=== PATIENT | male | born 1940 | race Caucasian/White ===

== ENCOUNTER 2016-07-11 11:24 | Day surgery (SDC) | payer MEDICARE, OTHER ==
[2016-07-11] MEDS ORDERED: LACTATED RINGERS 1,000 ML IV ONE ×2 (11:43→13:48)
[2016-07-11] MEDS ORDERED: MIDAZOLAM 2 MG/2 ML VIAL IVP ONE (13:10)
[2016-07-11] MEDS ORDERED: fentaNYL 250 MCG/5 ML VIAL IVP ONE (13:10)
== END 2016-07-11 11:25 | disposition home or self-care (01) ==
PROC: 0DB58ZX Excision of Esophagus, Via Natural or Artificial Opening Endoscopic, Diagnostic (ICD-10-PCS; principal; 2016-07-11 12:30)
PROC: 0DJD8ZZ Inspection of Lower Intestinal Tract, Via Natural or Artificial Opening Endoscopic (ICD-10-PCS; 2016-07-11 12:30)
DX: Z12.11 Encounter for screening for malignant neoplasm of colon (principal); Z86.010 Personal history of colon polyps; K22.70 Barrett's esophagus without dysplasia; K44.9 Diaphragmatic hernia without obstruction or gangrene; K31.7 Polyp of stomach and duodenum; K57.30 Diverticulosis of large intestine without perforation or abscess without bleeding; K21.9 Gastro-esophageal reflux disease without esophagitis; Z88.0 Allergy status to penicillin; F17.200 Nicotine dependence, unspecified, uncomplicated
CPT/HCPCS: 43239; G0105; J3010; J7120

== ENCOUNTER 2017-02-06 14:31 | Outpatient (CLI) | payer MEDICARE, OTHER ==
--- NOTE | 2017-02-07 15:23 | DEXA Report ---
DEXA SCAN: 02/06/2017 CLINICAL INDICATION: Chronic PPI use. TECHNIQUE: Dual energy x-ray absorptiometry (DXA) was performed on a [employer] system. Regions measured are the AP spine, femoral neck, and, if needed, forearm. COMPARISON: None. In accordance with the International Society for Clinical Densitometry (ISCD) guidelines, data from previous exams may be reanalyzed using current recommendations and techniques. This is done to allow a more accurate basis for comparison with the current study. FINDINGS LUMBAR SPINE DATA: REGION BMD (g/cm/cm) T-SCORE Z-SCORE L1 1.158 0.0 0.7 L2 1.183 -0.5 0.3 L3 1.417 1.5 2.2 L4 1.281 0.3 1.1 TOTAL 1.263 0.4 1.1 NOTE: All evaluable vertebrae are used for classification. HIP DATA: REGION BMD (g/cm/cm) T-SCORE Z-SCORE Neck 0.878 -1.5 0.1 TOTAL 0.952 -1.0 0.0 NOTE: The femoral neck or total proximal femur, whichever is lowest, is used for classification. IMPRESSION THE WHO CLASSIFICATION BASED ON THE INTERNATIONAL REFERENCE STANDARD: OSTEOPENIA (REFERENCE LEFT FEMORAL NECK). FRACTURE RISK: INCREASED. RECOMMENDATION: Patients with diagnosis of osteoporosis or osteopenia should have regular bone mineral density assessment. For those eligible for Medicare, routine testing is allowed once every 2 years. Testing frequency can be increased for patients who have rapidly progressing disease or for those who are receiving medical therapy to restore bone mass. COMMENT: World Health Organization (WHO) definitions for osteoporosis and osteopenia: NORMAL BMD: T-score at -1.0 or higher, fracture risk is low. OSTEOPENIA BMD: T-score between -1.0 and -2.5, fracture risk is increased. OSTEOPOROSIS BMD: T-score at -2.5 or lower, fracture risk high. National Osteoporosis Foundation recommends: 1. Obtain adequate dietary calcium (at least 1200 mg per day) and vitamin D (400 -800 international units per day). 2. Participate, as appropriate, in regular weightbearing and muscle- strengthening exercise. 3. Avoid tobacco use and reduce alcohol and caffeine intake. 4. For more detailed information see the website at www.NOF.org. MTDD
== END 2017-02-06 14:32 | disposition home or self-care (01) ==
LOC: DI 14:31
PROVIDERS: ATTEND Physician Assistant
DX: M85.88 Other specified disorders of bone density and structure, other site (principal); Z79.899 Other long term (current) drug therapy
CPT/HCPCS: 77080

== ENCOUNTER 2017-05-27 18:30 | Outpatient (CLI) | payer MEDICARE, OTHER ==
--- NOTE | 2017-05-28 14:26 | XRAY Report ---
TWO VIEW CHEST: 05/27/2017 CLINICAL INDICATION: Fever, cough. COMPARISON: 03/19/2014. FINDINGS: Frontal and lateral views of the chest demonstrate a normal cardiac silhouette. The lungs remain hyperinflated, compatible with COPD. A small hiatal hernia is incidentally noted. No focal infiltrate, effusion, or pneumothorax is present. IMPRESSION: HYPERINFLATION, COMPATIBLE WITH COPD. NO EVIDENCE OF ACUTE CARDIOPULMONARY DISEASE. TD: 05/28/2017 14:25
== END 2017-05-27 18:31 | disposition home or self-care (01) ==
LOC: DI 18:30
PROVIDERS: ATTEND Family Medicine
DX: R05 Cough (principal); R50.9 Fever, unspecified
CPT/HCPCS: 71046

== ENCOUNTER 2017-06-28 09:16 | Outpatient (CLI) | payer MEDICARE, OTHER ==
[~2017-06-28 09:16] MED LIST: ALBUTEROL NEB 2.5 MG/3 ML INH ONE
== END 2017-06-28 09:17 | disposition home or self-care (01) ==
LOC: RT 09:16
PROVIDERS: ATTEND Physician Assistant
DX: R05 Cough (principal)
CPT/HCPCS: 94010

== ENCOUNTER 2018-04-11 10:10 | Emergency (ER) | payer MEDICARE, OTHER ==
[2018-04-11 10:18] VITALS: BP 120/57
[2018-04-11] MEDS ORDERED: IBUPROFEN 800 MG TABLET PO STA (10:26)
[2018-04-11] MEDS ORDERED: ACETAMINOPHEN 325 MG TABLET PO STA (10:43)
--- NOTE | 2018-04-11 11:10 | XRAY Report ---
Reason: dyspnea Procedure Date: 04/11/2018 Accession Number: [id number] / [id number] Procedure: XR - Chest 2 View X-Ray CPT Code: 54555 FULL RESULT: EXAM: CHEST RADIOGRAPHY EXAM DATE: 04/11/2018 10:43 AM. CLINICAL HISTORY: Dyspnea. Cough and fever. Pneumonia 3 months ago. COMPARISON: CHEST 2 VIEW 05/27/2017 6:34 PM. TECHNIQUE: 2 views. FINDINGS: Lungs/Pleura: No focal opacities evident. No pleural effusion. No pneumothorax. Normal volumes. Mediastinum: Heart and mediastinal contours are unremarkable. Minimal aortic arch calcification. Other: None. IMPRESSION: Normal 2-view chest radiography. RADIA
--- NOTE | 2018-04-11 11:20 | ED Physician Documentation ---
History of Present Illness - Stated complaint Stated Complaint: FEVER - Chief complaint Chief Complaint: Fever - History obtained from History obtained from: Patient, Family (Spouse) - History of Present Illness Timing: How many days ago (4) - Additonal information Additional information: The patient is a 78-year-old male who presents with nonproductive cough of 4 day s duration during the night last night he had a fever to 101.6, with "shakes." He reports mild shortness of breath, but denies chest pain. He has history of pneumonia 2-1/2 months ago, and is concerned about the recurrent pneumonia. He was treated with Zithromax at that time. He has remote history of cigarette smoking, more than 40 years ago. Review of Systems Constitutional: reports: Fever, Chills Nose: denies: Congestion Throat: denies: Sore throat Cardiac: denies: Chest pain / pressure Respiratory: reports: Dyspnea (mild), Cough GI: denies: Abdominal Pain, Nausea, Vomiting : denies: Dysuria Skin: denies: Rash Musculoskeletal: denies: Back pain, Extremity swelling Neurologic: denies: Focal weakness, Numbness, Altered mental status, Headache PD PAST MEDICAL HISTORY - Past Medical History Past Medical History: Yes Cardiovascular: None Respiratory: Pneumonia Neuro: None Endocrine/Autoimmune: None GI: Other : None HEENT: None Psych: None Musculoskeletal: None Derm: None Other Past Medical History: barrets esophagus - Past Surgical History General: Colonoscopy, EGD HEENT: Tonsil/Adenoidectomy - Present Medications Home Medications: Ambulatory Orders Medication Instructions Recorded Confirmed Omeprazole [PriLOSEC] 40 mg PO DAILY 04/20/13 04/11/18 Ranitidine HCl [Zantac] 300 mg PO DAILY 07/10/16 04/11/18 Azithromycin [Zithromax] 0 mg PO DAILY #6 tablet 04/11/18 Benzonatate [Tessalon Perle] 100 - 200 mg PO TID PRN #20 capsule 04/11/18 - Allergies Allergies/Adverse Reactions: Allergies Allergy/AdvReac Type Severity Reaction Status Date / Time Penicillins Allergy Unknown Unknown Verified 04/11/18 10:18 - Social History Does the pt smoke?: No Smoking Status: Former smoker (Quit more than 40 years ago.) Does the pt drink ETOH?: No Does the pt have substance abuse?: No - Immunizations Immunizations are current?: Yes - POLST Patient has POLST: No PD ED PE NORMAL - Vitals Vital signs reviewed: Yes (normal) - General General: Alert and oriented X 3, Well developed/nourished - HEENT HEENT: Atraumatic, Pharynx benign - Neck Neck: No adenopathy, No JVD - Cardiac Cardiac: RRR, No murmur - Respiratory Respiratory: No respiratory distress, Clear bilaterally - Abdomen Abdomen: Soft, Non tender - Back Back: No CVA TTP - Derm Derm: No rash - Extremities Extremities: No edema, No calf tenderness / cord - Neuro Neuro: Alert and oriented X 3, No motor deficit, No sensory deficit Results - Vitals Vitals: Oxygen O2 Source Room air - Rads (name of study) CXR Radiology: Prelim report reviewed, EMP read contemporaneously, See rad report ( Normal 2 view chest radiography.) PD MEDICAL DECISION MAKING - ED course Complexity details: reviewed results, re-evaluated patient, considered differential, d/w patient, d/w family ED course: The patient's presentation is most consistent with acute bronchitis, with associated fever and shaking chills. His chest x-ray reveals no evidence of lobar pneumonia. He does not appear septic, and his respiratory rate and pulse oximetry are adequate. Given his presentation with shaking chills, I believe antibiotic therapy is warranted. He is being discharged with prescription for Zithromax and for Tessalon. I discussed with him and his the expected course of illness, antibiotic treatment and outpatient follow-up, as well as potentially worrisome signs or symptoms that should prompt reevaluation in the emergency department. Departure - Departure Disposition: 01 Home, Self Care Clinical Impression: Acute bronchitis Qualifiers: Bronchitis organism: unspecified organism Qualified Code(s): J20.9 - Acute bronchitis, unspecified Condition: Stable Instructions: ED Bronchitis Asthmatic Follow-Up: Jurgen Pendleton MD [Physician No Access] - Prescriptions: Azithromycin [Zithromax] 0 mg PO DAILY #6 tablet Benzonatate [Tessalon Perle] 100 - 200 mg PO TID PRN #20 capsule PRN Reason: Cough Comments: Continue using Tylenol as needed for fever. Take Zithromax daily as prescribed. You can use Tessalon as prescribed if needed for cough. You can use your albuterol inhaler if needed for wheezing or shortness of breath. Follow-up with your primary physician within 1 week. Call to schedule an appointment. Return to the emergency department if you develop increasing difficulty breathing, recurrent fever with shaking chills, or otherwise worsening symptoms. Discharge Date/Time: 04/11/18 11:49
== END 2018-04-11 11:49 | disposition home or self-care (01) ==
LOC: ED 10:10
DX: J02.9 Acute pharyngitis, unspecified (principal); Z87.891 Personal history of nicotine dependence
CPT/HCPCS: 71046; 99283; A9270

== ENCOUNTER 2018-05-09 16:05 | Outpatient (CLI) | payer MEDICARE, OTHER ==
--- NOTE | 2018-05-10 15:09 | XRAY Report ---
Reason: PAINFUL LEFT FOOT Procedure Date: 05/09/2018 Accession Number: [id number] / [id number] Procedure: XR - Foot 3 View LT CPT Code: FULL RESULT: EXAM: LEFT FOOT RADIOGRAPHY EXAM DATE: 05/09/2018 04:10 PM. CLINICAL HISTORY: Painful left foot. COMPARISON: None. TECHNIQUE: Three [id number] views. FINDINGS: Bones: Diffusely demineralized. No fractures or bone lesions. Joints: No subluxation or dislocation. There is minimal joint space narrowing and marginal osteophyte formation at the first metatarsophalangeal joint. There are minimal degenerative joint changes in the midfoot. Soft Tissues: Normal. No soft tissue swelling. IMPRESSION: 1. No acute osseous abnormality of the foot. 2. 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 RADIA
== END 2018-05-09 16:06 | disposition home or self-care (01) ==
LOC: DI 16:05
PROVIDERS: ATTEND Podiatrist
DX: M19.072 Primary osteoarthritis, left ankle and foot (principal)

== ENCOUNTER 2019-05-22 13:47 | Outpatient (CLI) | payer MEDICARE, OTHER ==
--- NOTE | 2019-05-25 13:46 | DEXA Report ---
Reason: BONE DISORDER Procedure Date: 05/22/2019 Accession Number: [id number] / [id number] Procedure: DEX - Dexa Spine and/or Hip CPT Code: Final Report FULL RESULT: EXAM: Dexa Spine and/or Hip DATE: 05/22/2019 2:52 PM CLINICAL HISTORY: BONE DISORDER TECHNIQUE: Dual energy x-ray absorptiometry (DXA) was performed on a [employer] System. Regions measured are the AP Spine, femoral neck, and if needed forearm. COMPARISON: 02/06/2017. In accordance with the International Society for Clinical Densitometry (ISCD) guidelines, data from previous exams may be reanalyzed using current recommendations and techniques. This is done to allow a more accurate basis for comparison with the current study. FINDINGS: The data for the lumbar spine is as follows: BMD (g/cm/cm) T-SCORE Z-SCORE REGION L1 1.145 -0.1 0.7 L2 1.240 0.0 0.8 L3 1.451 1.8 2.6 L4 1.404 1.4 2.2 TOTAL 1.312 0.8 1.6 NOTE: All evaluable vertebrae are used for classification The data for the hip is as follows: BMD (g/cm/cm) T-SCORE Z-SCORE REGION Neck 0.861 -1.6 0.0 TOTAL 0.897 -1.4 -0.2 NOTE: The femoral neck or total proximal femur, whichever is lowest, is used for classification. DXA RESULTS SUMMARY: Spine SCAN DATE AGE BMD CHANGE VS CHANGE VS PREVIOUS PREVIOUS % [birth year][age][birth year]2019 [age] 1.312 0.049* 3.9* 02[birth year]06/2017 [age] 1.263 * Denotes significant change at the 95% confidence level. Denotes dissimilar scan types or analysis methods. DXA RESULTS SUMMARY: Hip SCAN DATE AGE BMD CHANGE VS CHANGE VS PREVIOUS PREVIOUS % [birth year]2019 79.3 0.897 -0.055* -5.8* 02[birth year]06/2017 77.0 0.952 * Denotes significant change at the 95% confidence level. Denotes dissimilar scan types or analysis methods. IMPRESSION: THE WHO CLASSIFICATION BASED ON THE INTERNATIONAL REFERENCE STANDARD IS OSTEOPENIA. THE FRACTURE RISK IS INCREASED. Interval decrease in bone density is statistically significant. RECOMMENDATION: Patients with diagnosis of osteoporosis or osteopenia should have regular bone mineral density assessment. For those eligible for Medicare, routine testing is allowed once every 2 years. Testing frequency can be increased for patients who have rapidly progressing disease or for those who are receiving medical therapy to restore bone mass. COMMENT: World Health Organization (WHO) definitions for osteoporosis and osteopenia: NORMAL BMD: T-score at -1.0 or higher, fracture risk is low OSTEOPENIA BMD: T-score between -1.0 and -2.5, fracture risk is increased. OSTEOPOROSIS BMD: T-score at -2.5 or lower, fracture risk is high. National Osteoporosis Foundation recommends: 1. Obtain adequate dietary calcium (at least 1200 mg per day) and vitamin D (400-800 international units per day). 2. Participate, as appropriate, in regular weightbearing and muscle-strengthening exercise. 3. Avoid tobacco use and reduce alcohol and caffeine intake. 4. For more detailed information see the website at www.NOF.org.
== END 2019-05-22 13:48 | disposition home or self-care (01) ==
LOC: DI 13:47
PROVIDERS: ATTEND Internal Medicine
DX: M85.88 Other specified disorders of bone density and structure, other site (principal)
CPT/HCPCS: 77080

== ENCOUNTER 2021-05-31 14:22 | Outpatient (CLI) | payer MEDICARE, OTHER ==
--- NOTE | 2021-05-31 17:06 | DEXA Report ---
PROCEDURE: Dexa Spine and/or Hip INDICATIONS: OSTEOPENIA/BONE DISORDERS TECHNIQUE: Dual energy x-ray absorptiometry (DXA) was performed on a [employer] System. Regions measur ed are the AP Spine, femoral neck, and if needed forearm. COMPARISON: 05/22/2019. FINDINGS: Lumbar Spine: Bone Mineral Density 1.273 g/cm/cm,T score 0.4. There is interval 3% decrease in total lumbar spine bone mineral density. Left Hip: Bone Mineral Density 0.896 g/cm/cm,T score -1.4. There is interval 0.1% decrease in total left hip b one mineral density. Left Femoral Neck: Bone Mineral Density 0.77 g/cm/cm, T score -2.2. (T score greater or equal to -1.0: NORMAL) (T score from -1.1 to -2.4: OSTEOPENIA) (T score less than or equal to -2.5 to: OSTEOPOROSIS) Impression: Osteopenia. Patients with diagnosis of osteoporosis or osteopenia should have regular bone mineral density assess ment. For those eligible for Medicare, routine testing is allowed once every 2 years. Testing frequ ency can be increased for patients who have rapidly progressing disease or for those who are receivin g medical therapy to restore bone mass. Reviewed by: Maxwell Brown MD on 05/31/2021 5:04 PM PST Approved by: Maxwell Brown MD on 05/31/2021 5:04 PM PST Station ID: [id number]
== END 2021-05-31 14:23 | disposition home or self-care (01) ==
LOC: DI 14:22
PROVIDERS: ATTEND Physician Assistant
DX: M85.89 Other specified disorders of bone density and structure, multiple sites (principal)

== ENCOUNTER 2021-12-07 13:23 | Outpatient (CLI) | payer MEDICARE, OTHER ==
--- NOTE | 2021-12-07 14:34 | CT Report ---
PROCEDURE: HEAD WO INDICATIONS: DIZZINESS TECHNIQUE: Noncontrast 4.5 mm thick angled axial sections acquired from the foramen magnum to the vertex. For r adiation dose reduction, the following was used: automated exposure control, adjustment of mA and/or kV according to patient size. COMPARISON: None. FINDINGS: Image quality: There is streak artifact seen through the skull base. CSF spaces: Basal cisterns are patent. No extra-axial fluid collections. Ventricles are normal in size and shape. Brain: No midline shift. No intracranial masses or hemorrhage. Car-white matter interface is norm al. Age-appropriate brain parenchymal volume loss and chronic small vessel ischemic change can be se en. Skull and face: Calvarium and visualized facial bones are intact, without suspicious lesions. Sinuses: Visualized sinuses and mastoids are clear. IMPRESSION: Unremarkable noncontrast head CT for age, without a cause of dizziness identified. If it would be helpful for clinical management decision making in this patient with this given histor y, please consider a dedicated brain MRI (IAC protocol, without and with contrast) for further eval uation (assuming that there is no contraindication). Reviewed by: Alvaro Rivas MD on 12/07/2021 1:33 PM SHAHNAZ Approved by: Alvaro Rivas MD on 12/07/2021 1:33 PM SHAHNAZ Station ID: [id number]
== END 2021-12-07 13:24 | disposition home or self-care (01) ==
LOC: DI 13:23
PROVIDERS: ATTEND Student in an Organized Health Care Education/Training Program
DX: R42 Dizziness and giddiness (principal)

== ENCOUNTER 2023-01-23 14:57 | Outpatient (CLI) | payer MEDICARE, OTHER ==
--- NOTE | 2023-01-23 20:09 | XRAY Report ---
PROCEDURE: Chest 2 View X-Ray INDICATIONS: COUGH TECHNIQUE: 2 views of the chest were obtained. COMPARISON: 04/11/2018 FINDINGS: Surgical changes and devices: None. Lungs and pleura: No pleural effusions or pneumothorax. Lungs are clear. Chronic interstitial carmela nges Mediastinum: Mediastinal contours appear normal. Heart size is normal. Moderate hiatal hernia. Athe rosclerotic vascular calcification noted in the aortic arch. Bones and chest wall: No suspicious bony lesions. Overlying soft tissues appear unremarkable. IMPRESSION: No acute cardiopulmonary findings Reviewed by: Abelardo Ybarra MD on 01/23/2023 7:08 PM SHAHNAZ Approved by: Abelardo Ybarra MD on 01/23/2023 7:08 PM AKDT Station ID: [id number]
== END 2023-01-23 14:58 | disposition home or self-care (01) ==
LOC: DI 14:57
PROVIDERS: ATTEND Student in an Organized Health Care Education/Training Program
DX: R05.9 Cough, unspecified (principal)

== ENCOUNTER 2023-09-11 13:34 | Emergency (ER) | payer MEDICARE, OTHER ==
--- NOTE | 2023-09-11 14:16 | XRAY Report ---
PROCEDURE: Chest 2V INDICATIONS: Cough TECHNIQUE: 2 views of the chest were acquired. COMPARISON: Chest x-ray 01/23/2023 FINDINGS: Surgical changes and devices: None. Lungs and pleura: No pleural effusions or pneumothorax. Lungs are clear. Mediastinum: Mediastinal contours appear normal. Heart size is mildly prominent. Bones and chest wall: No suspicious bony lesions. Overlying soft tissues appear unremarkable. IMPRESSION: No acute pulmonary process. Reviewed by: Gabby Wellington MD on 09/11/2023 2:15 PM PDT Approved by: Gabby Wellington MD on 09/11/2023 2:15 PM PDT Station ID: [id number]
[2023-09-11 14:42] LABS: B. PARAPERTUSSIS- RESP PCR PAN NOT DETECTED; B. PERTUSSIS- RESP PCR PANEL NOT DETECTED; C. PNEUMONIAE- RESP PCR PANEL NOT DETECTED; CORONAVIRUS 229E-RESP PCR NOT DETECTED; CORONAVIRUS HKU1-RESP PCR NOT DETECTED; CORONAVIRUS NL63-RESP PCR NOT DETECTED; CORONAVIRUS OC43-RESP PCR NOT DETECTED; HUMAN METAPNEUMOVIRUS NOT DETECTED; INFLUENZA A- RESP PCR PANEL NOT DETECTED; INFLUENZA B - RESP PCR PANEL NOT DETECTED; M. PNEUMONIAE- RESP PCR PANEL NOT DETECTED; PARAINFLUENZA VIRUS 1 NOT DETECTED; PARAINFLUENZA VIRUS 2 NOT DETECTED; PARAINFLUENZA VIRUS 3 DETECTED; PARAINFLUENZA VIRUS 4 NOT DETECTED; RHINOVIRUS/ENTEROVIRUS NOT DETECTED; RSV- RESP PCR PANEL NOT DETECTED; SARS-CoV-2 -RESP PCR PANEL NOT DETECTED
--- NOTE | 2023-09-11 15:09 | ED Physician Documentation ---
PD HPI URI - Stated complaint Stated Complaint: COUGH, FEVER - Chief complaint Chief Complaint: Resp - History obtained from History obtained from: Patient, Family - History of Present Illness Timing - onset: How many weeks ago (1) Timing duration: Weeks (1) Pain level max: 0 Pain level now: 0 Associated symptoms: Fever, Nasal congestion, Rhinorrhea, Dry cough Recently seen: Not recently seen - Additional information Additional information: 83-year-old male presents to the emergency department with 1 week of cough and bodyaches. Has had congestion as well. Family states history of pneumonia. The cough now is mostly dry. Tmax 101 at home. Not having any pain. Nothing makes it better or worse. No vomiting. No abdominal pain. No chest pain. No difficulty breathing. Review of Systems Constitutional: reports: Fever Throat: denies: Sore throat GI: denies: Vomiting Skin: denies: Rash PD PAST MEDICAL HISTORY - Past Medical History Cardiovascular: None Respiratory: Pneumonia Neuro: None Endocrine/Autoimmune: None GI: Other : None HEENT: None Psych: None Musculoskeletal: None Derm: None - Past Surgical History General: Colonoscopy, EGD HEENT: Tonsil/Adenoidectomy - Present Medications Home Medications: Ambulatory Orders Medication Instructions Recorded Confirmed Omeprazole [PriLOSEC] 40 mg PO DAILY 04/20/13 08/27/23 Acetaminophen [Tylenol Arthritis] 650 mg PO DAILY 12/28/22 08/27/23 Ascorbic Acid [Vitamin C] 500 mg PO DAILY 12/28/22 08/27/23 Biotin 5,000 mcg PO DAILY 12/28/22 08/27/23 Calcium Carbonate [Calcium] 600 mg PO BID 12/28/22 08/27/23 Cholecalciferol (Vitamin D3) 125 mcg PO DAILY 12/28/22 08/27/23 [D3-5000] Latanoprost 0.005% Ophth Drops 1 drops OPTH QPM 12/28/22 08/27/23 [Xalatan Ophth Drops] Magnesium 250 mg PO DAILY 12/28/22 08/27/23 Memantine [Namenda] 5 mg PO BID 12/28/22 08/27/23 [place]-3S/Dha/Epa/Fish Oil [Fish 1 each PO BID 12/28/22 08/27/23 Oil 1,200 mg Softgel] Benzonatate [Tessalon] 200 mg PO TID PRN #30 cap 09/11/23 - Allergies Allergies/Adverse Reactions: Allergies Allergy/AdvReac Type Severity Reaction Status Date / Time Penicillins Allergy Unknown Unknown Verified 09/11/23 13:46 - Social History Does the pt smoke?: No Smoking Status: Never smoker Does the pt drink ETOH?: No Does the pt have substance abuse?: No - Immunizations Immunizations are current?: Yes - POLST Patient has POLST: No PD ED PE NORMAL - Vitals Vital signs reviewed: Yes - General General: Alert and oriented X 3, No acute distress, Well developed/nourished - HEENT HEENT: Ears normal, Moist mucous membranes, Pharynx benign - Neck Neck: Supple, no meningeal sign - Cardiac Cardiac: RRR, Strong equal pulses - Respiratory Respiratory: No respiratory distress, Clear bilaterally - Abdomen Abdomen: Soft, Non tender, Non distended - Derm Derm: Warm and dry - Extremities Extremities: No edema - Neuro Neuro: Alert and oriented X 3 - Psych Psych: Normal mood, Normal affect Results - Vitals Vitals: Vital Signs - 24 hr 09/11/23 09/11/23 09/11/23 13:44 13:46 15:23 Temperature 37.0 C 36.8 C Heart Rate 71 78 73 Respiratory 18 17 18 Rate Blood Pressure 132/60 H 143/81 H 136/67 H O2 Saturation 100 99 100 Oxygen O2 Source Room air - Labs Labs: Laboratory Tests 09/11/23 13:49 Nasal Adenovirus (PCR) NOT DETECTED Nasal B. parapertussis DNA (PCR) NOT DETECTED Nasal Coronavir 229E PCR NOT DETECTED Nasal Coronavir HKU1 PCR NOT DETECTED Nasal Coronavir NL63 PCR NOT DETECTED Nasal Coronavir OC43 PCR NOT DETECTED Nasal Enterovir/Rhinovir PCR NOT DETECTED Nasal Influenza B PCR NOT DETECTED Nasal Influenza A PCR NOT DETECTED Nasal Parainfluen 1 PCR NOT DETECTED Nasal Parainfluen 2 PCR NOT DETECTED Nasal Parainfluen 3 PCR DETECTED A Nasal Parainfluen 4 PCR NOT DETECTED Nasal RSV (PCR) NOT DETECTED Nasal B.pertussis DNA PCR NOT DETECTED Nasal C.pneumoniae (PCR) NOT DETECTED Jose Human Metapneumo PCR NOT DETECTED Nasal M.pneumoniae (PCR) NOT DETECTED Nasal SARS-CoV-2 (PCR) NOT DETECTED - Rads (name of study) cxr Relevant Findings:: Final report received, See rad report PD Medical Decision Making - ED course Complexity details: reviewed results, re-evaluated patient, considered differential, d/w patient, d/w family ED course: Patient is well-appearing, nontoxic. Afebrile. No hypoxia. No respiratory distress. Tolerating p.o. without difficulty. Lungs clear to auscultation bilaterally. No wheezing. No stridor. Respiratory PCR is positive for parainfluenza type III. Chest x-ray does not show any evidence of pneumonia. We will continue supportive care at home. Will prescribe cough medication for home. Recommend follow-up with PCP as needed return if he worsens. Patient and family counseled regarding signs and symptoms for which I believe and urgent re-evaluation would be necessary. Patient with good understanding of and agreement to plan and is comfortable going home at this time This document was made in part using voice recognition software. While efforts are made to proofread this document, sound alike and grammatical errors may occur. Departure - Departure Disposition: 01 Home, Self Care Clinical Impression: Parainfluenza Condition: Good Instructions: ED Viral Syndrome Follow-Up: TOM SNOW PA [Primary Care Provider] - Within 1 week Prescriptions: Benzonatate [Tessalon] 200 mg PO TID PRN #30 cap PRN Reason: Cough Comments: [facility] [place]. You can use this medication as needed to help with your cough. You have tested positive for parainfluenza 3 today which is a respiratory virus. This does not require antibiotics. Your chest x-ray does not show any evidence of pneumonia. Please return if you worsen and please follow-up with your doctor for further care. Forms: PCP List Discharge Date/Time: 09/11/23 15:27
[2023-09-11 15:26] VITALS: BP 136/67; O2SAT 100
== END 2023-09-11 15:27 | disposition home or self-care (01) ==
LOC: ED 13:34
DX: B34.8 Other viral infections of unspecified site (principal); Z79.899 Other long term (current) drug therapy
CPT/HCPCS: 87633; 99283; 99284

== ENCOUNTER 2023-09-13 00:52 | Outpatient (CLI) | payer MEDICARE, OTHER | END 2023-09-13 23:59 | disposition critical access hospital (66) | LOC: EMS 00:52 | DX: R07.81 Pleurodynia (principal); R05.9 Cough, unspecified; R07.1 Chest pain on breathing | CPT/HCPCS: A0425; A0429 ==

== ENCOUNTER 2023-09-13 01:01 | Observation (INO) | payer MEDICARE, OTHER ==
--- NOTE | 2023-09-13 01:06 | ED Physician Documentation ---
History of Present Illness - Stated complaint Stated Complaint: RIB PX/COUGH - History obtained from History obtained from: Patient - Additonal information Additional information: 83-year-old man presents with flu symptoms for the past week, found to be flu positive, now with left lower rib pain starting today associated with cough. Denies fever, shortness of breath, nausea or vomiting or diarrhea. PD PAST MEDICAL HISTORY - Past Medical History Cardiovascular: None Respiratory: Pneumonia Neuro: None Endocrine/Autoimmune: None GI: Other : None HEENT: None Psych: None Musculoskeletal: None Derm: None - Past Surgical History General: Colonoscopy, EGD HEENT: Tonsil/Adenoidectomy - Present Medications Home Medications: Ambulatory Orders Medication Instructions Recorded Confirmed Omeprazole [PriLOSEC] 40 mg PO DAILY 04/20/13 08/27/23 Acetaminophen [Tylenol Arthritis] 650 mg PO DAILY 12/28/22 08/27/23 Ascorbic Acid [Vitamin C] 500 mg PO DAILY 12/28/22 08/27/23 Biotin 5,000 mcg PO DAILY 12/28/22 08/27/23 Calcium Carbonate [Calcium] 600 mg PO BID 12/28/22 08/27/23 Cholecalciferol (Vitamin D3) 125 mcg PO DAILY 12/28/22 08/27/23 [D3-5000] Latanoprost 0.005% Ophth Drops 1 drops OPTH QPM 12/28/22 08/27/23 [Xalatan Ophth Drops] Magnesium 250 mg PO DAILY 12/28/22 08/27/23 Memantine [Namenda] 5 mg PO BID 12/28/22 08/27/23 [place]-3S/Dha/Epa/Fish Oil [Fish 1 each PO BID 12/28/22 08/27/23 Oil 1,200 mg Softgel] Benzonatate [Tessalon] 200 mg PO TID PRN #30 cap 09/11/23 Codeine Phosphate/Guaifenesin 5 ml PO QDDINNER PRN #70 ml 09/13/23 [Codeine-Guaifen 10-100 mg/5 ml] - Allergies Allergies/Adverse Reactions: Allergies Allergy/AdvReac Type Severity Reaction Status Date / Time Penicillins Allergy Unknown Unknown Verified 09/11/23 13:46 - Social History Does the pt smoke?: No Smoking Status: Never smoker Does the pt drink ETOH?: No Does the pt have substance abuse?: No - Immunizations Immunizations are current?: Yes - POLST Patient has POLST: No PD ED PE NORMAL - Vitals Vital signs reviewed: Yes - General General: Alert and oriented X 3, No acute distress, Well developed/nourished - HEENT HEENT: Atraumatic, PERRL, EOMI, Moist mucous membranes, Pharynx benign - Neck Neck: Supple, no meningeal sign - Cardiac Cardiac: RRR - Respiratory Respiratory: No respiratory distress, Clear bilaterally - Abdomen Abdomen: Non tender, Non distended Results - Vitals Vitals: Vital Signs - 24 hr 09/13/23 09/13/23 01:04 01:42 Temperature 36.9 C Heart Rate 57 L 86 Respiratory 22 22 Rate Blood Pressure 159/77 H 138/76 H O2 Saturation 98 91 L Oxygen O2 Source Room air - Labs Labs: Laboratory Tests 09/13/23 09/13/23 09/13/23 01:20 01:20 01:20 WBC 15.5 H RBC 5.88 Hgb 16.3 Hct 50.4 MCV 85.7 MCH 27.7 MCHC 32.3 RDW 13.7 Plt Count 441 MPV 9.7 Neut # (Auto) 11.7 H Lymph # (Auto) 2.2 [place] # (Auto) 1.3 H Eos # (Auto) 0.0 Baso # (Auto) 0.1 Absolute Nucleated RBC 0.00 Nucleated RBC % 0.0 VBG pH 7.434 H VBG pCO2 32.5 L VBG pO2 60.2 H VBG HCO3 21.3 L VBG Total CO2 22.3 L VBG O2 Saturation 91.7 H VBG Base Excess -1.8 Sodium 133 L Potassium 4.2 Chloride 100 L Carbon Dioxide 22 Anion Gap 11.0 BUN 28 H Creatinine 1.5 H Estimated GFR (MDRD) 45 L Glucose 114 H Calcium 9.7 Total Bilirubin 1.8 H AST 17 ALT 12 Alkaline Phosphatase 62 Total Protein 7.0 Albumin 4.2 Globulin 2.8 Albumin/Globulin Ratio 1.5 Lipase 15 PD Medical Decision Making - ED course ED course: 83-year-old man recently diagnosed with flu presents with left lower rib pain worse with coughing keeping him from sleeping tonight. Plan to obtain chest x- ray, lab work, give him on the cardiac technologist and provide IV morphine. Morphine was given with improvement in pain. He is however hypoxic with o2 sat 91% RA, and tachypneic. plan to admit for o2 therapy, monitoring and pain control. Departure - Departure Clinical Impression: Rib pain on left side, Cough, Influenza Condition: Stable Instructions: ED Flu Prescriptions: Codeine Phosphate/Guaifenesin [Codeine-Guaifen 10-100 mg/5 ml] 5 ml PO QDDINNER PRN #70 ml PRN Reason: Cough Comments: You were seen in the emergency department for Rib pain from coughing due to flu. Strong cough suppressant was sent to [facility]. Please follow-up with your primary care provider and return to the emergency department if you have any new or worsening symptoms or other concerns.
[2023-09-13] MEDS: MORPHINE 2 MG/ML CARPUJECT IVP STA (01:18)
[2023-09-13 01:26] LABS: VBG BASE EXCESS -1.8 mmol/L (-2 - +2); VBG HCO3 21.3 mmol/L (23-28); VBG OXYGEN SATURATION 91.7 % (60-80); VBG PCO2 32.5 mmHg (41-51); VBG PH 7.434 (7.31-7.41); VBG PO2 60.2 mmHg (25-47); VBG TOTAL CO2 22.3 mmol/L (24-29)
[2023-09-13 01:34] LABS: BASOPHILS # (AUTO) 0.1 10^3/uL (0.0-0.1); BASOPHILS % (AUTO) 0.8 %; EOSINOPHILS % (AUTO) 0.1 %; HCT - HEMATOCRIT 50.4 % (42.0-52.0); HGB - HEMOGLOBIN 16.3 g/dL (14.0-18.0); LYMPHOCYTES # (AUTO) 2.2 10^3/uL (1.5-3.5); LYMPHOCYTES % (AUTO) 14.2 %; MEAN CORPUSCULAR HEMOGLOBIN 27.7 pg (27.0-31.0); MEAN CORPUSCULAR HGB CONC 32.3 g/dL (32.0-36.0); MEAN CORPUSCULAR VOLUME 85.7 fL (80.0-94.0); MEAN PLATELET VOLUME 9.7 fL (7.4-11.4); MONOCYTES # (AUTO) 1.3 10^3/uL (0.0-1.0); MONOCYTES % (AUTO) 8.5 %; NEUTROPHILS # (AUTO) 11.7 10^3/uL (1.5-6.6); NEUTROPHILS % (AUTO) 75.4 %; PLT - PLATELET COUNT 441 10^3/uL (130-450); RED BLOOD COUNT 5.88 10^6/uL (4.70-6.10); RED CELL DISTRIBUTION WIDTH 13.7 % (12.0-15.0); WHITE BLOOD COUNT 15.5 x10^3/uL (4.8-10.8)
[2023-09-13 01:43] LABS: ALBUMIN 4.2 g/dL (3.2-5.5); ALBUMIN/GLOBULIN RATIO 1.5 (1.0-2.2); BILIRUBIN,TOTAL 1.8 mg/dL (0.2-1.0); CALCIUM 9.7 mg/dL (8.5-10.3); CREATININE 1.5 mg/dL (0.6-1.3); POTASSIUM 4.2 mmol/L (3.5-4.5)
--- NOTE | 2023-09-13 01:51 | XRAY Report ---
PROCEDURE: Chest 1V INDICATIONS: Chest Pain TECHNIQUE: One view of the chest was acquired. COMPARISON: 09/11/2023. FINDINGS: Surgical changes and devices: None. Lungs and pleura: Diffuse interstitial prominence. Mild loss of vascular distinctness. Small bilater al pleural effusions more pronounced on the left. No pneumothorax. Mediastinum: Mediastinal contours appear normal. Heart size is normal. Bones and chest wall: No suspicious bony lesions. Overlying soft tissues appear unremarkable. IMPRESSION: Diffuse interstitial prominence with mild loss of vascular distinctness and small bilateral pleural e ffusions. Findings may represent an infectious or inflammatory process versus mild pulmonary edema. Reviewed by: Rogelio Marcelino MD on 09/13/2023 1:50 AM PDT Approved by: Rogelio Marcelino MD on 09/13/2023 1:50 AM PDT Station ID: [id number]
[2023-09-13] MEDS ORDERED: oxyCODONE 5 MG TABLET PO PRN (02:32)
[2023-09-13] MEDS ORDERED: oxyCODONE 30 MG TABLET PO PRN (02:32)
[2023-09-13] MEDS ORDERED: ONDANSETRON 4 MG/2 ML VIAL IVP PRN (02:35)
[2023-09-13] MEDS ORDERED: ACETAMINOPHEN 325 MG TABLET PO PRN (02:35)
--- NOTE | 2023-09-13 02:45 | HISTORY & PHYSICAL EXAMINATION ---
Chief Complaint - Chief Complaint Chief Complaint: left sided rib pain History of Present Illness - Admitted From Admitted From:: ED - History Obtained From Records Reviewed: EMR History obtained from: ED and patient Exam Limitations: tele medicine - History of Present Illness HPI Comment/Other: 83M c memory impairment presents to the ED reporting of left sided rib pain especially with coughing and breathing. Patient reports coughing for the past week. He states about the same time he developed the pleuritic chest pain. He states he has not done anything for the pain. No acetaminophen. No NSAIDs. He states he though it was getting better but tonight the pain drastically gotten worse. Here in the ED, patient is noted for parainfluenza positive. patient received morphine 4mg iv but still had significant pain. ED reached out to Hospital Medicine for assistance with further medical management. History - Past Medical History Cardiovascular: reports: None Respiratory: reports: Pneumonia Neuro: reports: None Endocrine/Autoimmune: reports: None GI: reports: Other : reports: None HEENT: reports: None Psych: reports: None Musculoskeletal: reports: None Derm: reports: None MRSA Hx?: No - Past Surgical History General: reports: Colonoscopy, EGD HEENT: reports: Tonsil/Adenoidectomy - POLST Patient has POLST: No Meds/Allgy - Home Medications Home Medications: Ambulatory Orders Medication Instructions Recorded Confirmed Omeprazole [PriLOSEC] 40 mg PO DAILY 04/20/13 08/27/23 Acetaminophen [Tylenol Arthritis] 650 mg PO DAILY 12/28/22 08/27/23 Ascorbic Acid [Vitamin C] 500 mg PO DAILY 12/28/22 08/27/23 Biotin 5,000 mcg PO DAILY 12/28/22 08/27/23 Calcium Carbonate [Calcium] 600 mg PO BID 12/28/22 08/27/23 Cholecalciferol (Vitamin D3) 125 mcg PO DAILY 12/28/22 08/27/23 [D3-5000] Latanoprost 0.005% Ophth Drops 1 drops OPTH QPM 12/28/22 08/27/23 [Xalatan Ophth Drops] Magnesium 250 mg PO DAILY 12/28/22 08/27/23 Memantine [Namenda] 5 mg PO BID 12/28/22 08/27/23 [place]-3S/Dha/Epa/Fish Oil [Fish 1 each PO BID 12/28/22 08/27/23 Oil 1,200 mg Softgel] Benzonatate [Tessalon] 200 mg PO TID PRN #30 cap 09/11/23 Codeine Phosphate/Guaifenesin 5 ml PO QDDINNER PRN #70 ml 09/13/23 [Codeine-Guaifen 10-100 mg/5 ml] - Allergies Allergies/Adverse Reactions: Allergies Allergy/AdvReac Type Severity Reaction Status Date / Time Penicillins Allergy Unknown Unknown Verified 09/11/23 13:46 Review of Systems - Other Findings Other Findings: negative unless mentioned differently Exam - Vital Signs Reviewed Vital Signs: Yes Vital Signs: Vital Signs x48h Temp Pulse Resp BP Pulse Ox 09/13/23 01:42 86 22 138/76 H 91 L 09/13/23 01:04 36.9 C 57 L 22 159/77 H 98 - Physical Exam General Appearance: positive: Moderate distress Eyes Bilateral: positive: Normal inspection, EOMI ENT: positive: ENT inspection nml Neck: positive: Nml inspection, Trachea midline Respiratory: positive: Other (refer to ED staff note) Cardiovascular: positive: Other (refer to ED staff note) Extremities: positive: Nml appearance Neurologic/Psychiatric: positive: Oriented x3, CN's nml (2-12) Sepsis Event Note (H) - Evaluation Current Stage of Sepsis: Sepsis Confirmed Source and Organism (if known) of Sepsis: parainfluenza bronchitis Conclusion/Plan - Problem List (1) Sepsis Conclusion/Plan: leukocytosis + tachycardia + viral bronchitis = sepsis. followup lactic acid. breathing treatment. pain control. followup procalcitonin for r/o super bacterial infection. hold empiric abx for now unless support for bacterial infection. (2) Parainfluenza Conclusion/Plan: noted parainfluenza acute bronchitis c pleurisy. symptomatic management- pain control and breathing treatment. r/o bacterial infection. (3) Acute bronchitis Conclusion/Plan: 2/2 parainfluenza x 1 wk. symptomatic management with pain control for assoc pleurisy and breathing treatment. followup procalcitonin to r/o possible concu rrent bacterial infection Qualifiers: Bronchitis organism: unspecified organism Qualified Code(s): J20.9 - Acute bronchitis, unspecified (4) Pleurisy with effusion Conclusion/Plan: pain control. breathing treatment. anti inflammation asa and colchicine followup cardiac enzymes to r/o cardiac involvement. monitor D Dimer. if significantly elevated will need to r/o PE. (5) Acute renal insufficiency Conclusion/Plan: noted elevated face boss 1.5 above usual 1.1-1.3 will gentle hydrate. avoid nephrotoxins as much as possible. monitor renal function with repeat BMP (6) Memory loss or impairment Conclusion/Plan: at increase risk for acute delirium. avoid medication that can trigger acute delirium. consider sleep aids for good sleep hygiene. - Lab Results Lab results reviewed: Yes Fish Bones: 09/13/23 01:20 09/13/23 01:20 - Diagnostic Imaging Results Diagnostic Imaging Results: positive: Final report reviewed Core Measures - Anticipated LOS I expect patient to be DC'd or transferred within 96 hours.: No - Issues Hospital Issues and Management Plan: The patient consented to receive this telemedicine service, which I performed via live two-way audiovisual equipment. The patient is at ([facility]) and I am physically in [facility]. A nurse assisted me in the visit. Full code SCDs, Heparin Inpatient Daysi Stevens DO Internal Medicine [employer] Tele Drill Operator - DVT/VTE - Prophylaxis VTE/DVT Device ordered at admit?: Yes Telemedicine Consult Details - Provider Location & Consult Time Telemedicine consultation conducted via videoconferencing?: Yes List names and roles of persons who participated in consult:: ED and patient Telemedicine provider location:: [facility] Time Telemedicine consult began:: 02:23 Time Telemedicine consult completed:: 03:18
[2023-09-13] MEDS: MORPHINE 10 MG/ML VIAL IVP PRN (02:48)
[2023-09-13 03:33] LABS: CRP - C-REACTIVE PROTEIN 12.5 mg/dL (<0.5)
[2023-09-13 03:36] LABS: TROPONIN I HIGH SENSITIVITY 6.2 ng/L (2.3-19.7)
[2023-09-13] MEDS: oxyCODONE 5 MG TABLET PO PRN (04:27)
[2023-09-13] MEDS: SODIUM CHLORIDE 0.9% 1,000 ML IV SCH (04:29)
[2023-09-13] MEDS: SODIUM CHLORIDE FLUSH 0.9% 10 ML SYRINGE IVP PRN (04:30)
[2023-09-13] MEDS: IPRATROPIUM/ALBUTEROL 3 ML NEB INH SCH (06:05)
[2023-09-13] MEDS: HEPARIN 5,000 UNIT/ML VIAL SUBQ SCH (08:10)
[2023-09-13] MEDS: ASPIRIN 325 MG TABLET PO SCH (08:10)
[2023-09-13] MEDS: COLCHICINE 0.6 MG TABLET PO SCH (08:10)
[2023-09-13] MEDS: SODIUM CHLORIDE FLUSH 0.9% 10 ML SYRINGE IVP SCH (08:11)
--- NOTE | 2023-09-13 10:58 | PHARMACY PROGRESS NOTE ---
- Best Possible Medication History Admit Date and Time: 09/13/23 0235 Processed by: Pharmacy Medications reviewed in ED?: No Medication History completed: Yes Patient Interview: Completed Secondary Source(s): Spouse/Significant other, Other family member, Pharmacy records, Insurance records, Previous admit records As the person ultimately responsible for medication therapy, providers are able to order a medication from an existing home medication list in [facility] via the "Reconcile Routine" prior to Confirmation of that medication by personal support worker. Such practice is discouraged except when the physician, in their clinical judgment, deems that a medical need exists for a medication without regard to previous use.
[2023-09-13 12:55] VITALS: O2SAT 95
--- NOTE | 2023-09-13 15:29 | Discharge Plan ---
Discharge Plan Problem Reviewed?: Yes Disposition: Home, Self Care Prescriptions: Codeine Phosphate/Guaifenesin [Codeine-Guaifen 10-100 mg/5 ml] 5 ml PO QDDINNER PRN #70 ml PRN Reason: Cough Colchicine 0.6 mg PO DAILY 60 Days #60 tablet Naproxen 250 mg PO BID #30 tablet Diet: Regular Activity Restrictions: Activity as Tolerated Shower Restrictions: No Driving Restrictions: No Instruction Topics: ED Flu Health Concerns: Mr. Barrera is an 83-year-old man who presented to the emergency room with left- sided rib pain exacerbated by coughing and breathing. Laboratory workup in the emergency room was significant for a viral panel positive for parainfluenza virus. Patient reports he has had the pain in his chest for approximately 1 week and has progressively worsened. Patient was admitted to the hospital as an inpatient but was changed to observation. Since his arrival on the floor he has been on room air and hemodynamically stable. His chest pain has improved and he is medically stable for discharge to home. Patient counseled to take Naprosyn 250 mg tablet 1 tablet twice daily for 14 days. In addition he will also take colchicine 0.6 mg tablet 1 tablet daily for 8 weeks. Per his , mild cognitive impairment appears to be at his baseline. He has a mild increase in his creatinine and was encouraged to drink fluids. He has an appointment for follow-up with KELSEA Abebe in approximately 1-2 weeks. Plan of Treatment: 1. Continue all medications as prescribed. 2. Please take Naprosyn 220 or 250 mg tablet mg tablet, 1 tablet twice daily with food/milk for 14 days 3. Please take colchicine 0.6 mg tablet 1 tablet daily for 60 days. 4. Please follow-up with your primary care provider. 5. Please seek care in an acute care clinic or facility for worsening shortness of breath, uncontrollable chest pain, or fever of 101.5 F. 6. Please drink plenty of fluids. Care Goals: Goal is to return to baseline function. Assessment: Mr. Barrera is a 83-year-old man has been diagnosed with parainfluenza and has pleurisy. He is he will be treated with NSAIDs and colchicine. Additional Instructions or Follow Up instructions: You were seen in the emergency department for Rib pain from coughing due to flu. Strong cough suppressant was sent to [facility]. Please follow-up with your primary care provider and return to the emergency department if you have any new or worsening symptoms or other concerns. No Smoking: If you smoke, Please STOP! Call for help. Follow-up with: TOM SNOW PA [Primary Care Provider] -
[2023-09-13 15:43] VITALS: BP 137/67
--- NOTE | 2023-09-13 16:04 | DISCHARGE SUMMARY ---
Discharge Summary Admit Date: 09/13/23 Discharge Date: 09/13/23 Discharging Provider: Negrito Mckoy MD Code Status: Attempt Resuscitation Discharge Disposition: 01 Home, Self Care - DIAGNOSES Admission Diagnoses: (1) Sepsis (2) Parainfluenza (3) Acute bronchitis (4) Pleurisy with effusion (5) Acute renal insufficiency (6) Memory loss or impairment Discharge Diagnoses with Status of Each Condition: (1) Pleurisy (2) Parainfluenza (3) Acute bronchitis secondary to parainfluenza virus (4) Acute renal insufficiency (6) Mild cognitive impairment - HPI History of Present Illness: Mr. Barrera is an 83-year-old man who presented to the emergency room with left- sided rib pain exacerbated by coughing and breathing. Laboratory workup in the emergency room was significant for a viral panel positive for parainfluenza virus. Patient reports he has had the pain in his chest for approximately 1 week and has progressively worsened. Patient was admitted to the hospital as an inpatient but was changed to observation. Since his arrival on the floor he has been on room air and hemodynamically stable. His chest pain has improved and he is medically stable for discharge to home. Patient counseled to take Naprosyn 250 mg tablet 1 tablet twice daily for 14 days. In addition he will also take colchicine 0.6 mg tablet 1 tablet daily for 8 weeks. Per his , mild cognitive impairment appears to be at his baseline. He has a mild increase in his creatinine and was encouraged to drink fluids. He has an appointment for follow-up with KELSEA Abebe in approximately 1-2 weeks. - HOSPITAL COURSE Hospital Course: See HPI - ALLERGIES Allergies/Adverse Reactions: Allergies Allergy/AdvReac Type Severity Reaction Status Date / Time Penicillins Allergy Unknown Unknown Verified 09/11/23 13:46 - MEDICATIONS Home Medications: Ambulatory Orders Medication Instructions Recorded Confirmed Omeprazole [PriLOSEC] 40 mg PO DAILY 04/20/13 09/13/23 Acetaminophen [Tylenol Arthritis] 650 mg PO DAILY 12/28/22 09/13/23 Ascorbic Acid [Vitamin C] 500 mg PO DAILY 12/28/22 09/13/23 Biotin 5,000 mcg PO DAILY 12/28/22 09/13/23 Calcium Carbonate [Calcium] 600 mg PO BID 12/28/22 09/13/23 Cholecalciferol (Vitamin D3) 125 mcg PO DAILY 12/28/22 09/13/23 [D3-5000] Latanoprost 0.005% Ophth Drops 1 drops EACHEYE QPM 12/28/22 09/13/23 [Xalatan Ophth Drops] Magnesium 250 mg PO DAILY 12/28/22 09/13/23 Memantine [Namenda] 5 mg PO BID 12/28/22 09/13/23 [place]-3S/Dha/Epa/Fish Oil [Fish 1 each PO DAILY 12/28/22 09/13/23 Oil 1,200 mg Softgel] Codeine Phosphate/Guaifenesin 5 ml PO QDDINNER PRN #70 ml 09/13/23 [Codeine-Guaifen 10-100 mg/5 ml] Colchicine 0.6 mg PO DAILY 60 Days #60 tablet 09/13/23 Naproxen 250 mg PO BID #30 tablet 09/13/23 - PHYSICAL EXAM AT DISCHARGE General Appearance: positive: No acute distress, Alert Eyes Bilateral: positive: Conjunctivae nml, No scleral icterus Neck: positive: No JVD, Trachea midline Respiratory: positive: Other Cardiovascular: positive: Other Abdomen: positive: Other Skin: positive: No rash Extremities: positive: Non-tender, No pedal edema - LABS Result Diagrams: 09/13/23 01:20 09/13/23 01:20 - QUALITY (Female Hip Fx Only) Was patient sent home on osteoporosis medication?: No - FOLLOW UP Follow Up: Follow-up with KELSEA Abebe - TIME SPENT Time Spent in Discharge (Minutes): 25
== END 2023-09-13 16:40 | disposition home or self-care (01) ==
LOC: EDUNIT# → ED 01:01 → MS2 02:35 → INTOOBSV 02:35
PROVIDERS: ADMIT Internal Medicine; ATTEND Internal Medicine
DX: A41.89 Other specified sepsis (principal); J20.4 Acute bronchitis due to parainfluenza virus; N28.9 Disorder of kidney and ureter, unspecified; G31.84 Mild cognitive impairment of uncertain or unknown etiology; J90 Pleural effusion, not elsewhere classified; R09.02 Hypoxemia
CPT/HCPCS: 36415; 71045; 80053; 82803; 83605; 83690; 83880; 84145; 84484; 85025; 85379; 85651; 86140; 87040; 94640; 96372; 96374; 96376; 97161; 97165; 99284; 99285; A9270; G0378

== ENCOUNTER 2023-10-04 08:49 | Outpatient (CLI) | payer MEDICARE, OTHER ==
[2023-10-04 18:40] LABS: INFLUENZA A- RESP PCR PANEL NOT DETECTED; INFLUENZA B - RESP PCR PANEL NOT DETECTED; RSV- RESP PCR PANEL NOT DETECTED; SARS-CoV-2 -RESP PCR PANEL DETECTED
[2023-10-05 09:49] LABS: HCT - HEMATOCRIT 48.3 % (42.0-52.0); HGB - HEMOGLOBIN 15.1 g/dL (14.0-18.0); MEAN CORPUSCULAR HEMOGLOBIN 27.3 pg (27.0-31.0); MEAN CORPUSCULAR HGB CONC 31.3 g/dL (32.0-36.0); MEAN CORPUSCULAR VOLUME 87.3 fL (80.0-94.0); RED BLOOD COUNT 5.53 10^6/uL (4.70-6.10); RED CELL DISTRIBUTION WIDTH 15.6 % (12.0-15.0)
[2023-10-05 10:07] LABS: ALBUMIN 4.2 g/dL (3.2-5.5); ALBUMIN/GLOBULIN RATIO 1.6 (1.0-2.2); BILIRUBIN,TOTAL 1.2 mg/dL (0.2-1.0); CALCIUM 9.9 mg/dL (8.5-10.3); CREATININE 1.2 mg/dL (0.6-1.3); POTASSIUM 4.3 mmol/L (3.5-4.5); TOTAL PROTEIN 6.9 g/dL (6.4-8.9)
== END 2023-10-04 08:50 | disposition home or self-care (01) ==
LOC: LAB 08:49
PROVIDERS: ATTEND Physician Assistant
DX: U07.1 COVID-19 (principal); J40 Bronchitis, not specified as acute or chronic
CPT/HCPCS: 36415; 80053; 85027; 87637

== ENCOUNTER 2023-10-04 13:15 | Outpatient (CLI) | payer MEDICARE, OTHER ==
--- NOTE | 2023-10-04 17:27 | XRAY Report ---
PROCEDURE: Chest 2V INDICATIONS: BRONCHITIS TECHNIQUE: 2 views of the chest were acquired. COMPARISON: 09/13/2023 FINDINGS: Surgical changes and devices: None. Lungs and pleura: Improved aeration in both lower lungs. There is mild persistent interstitial thick ening and upper lobe emphysematous changes suggesting underlying COPD. There is scarring at the later al left lung base with blunting of the costophrenic sulcus. No pneumothorax. Mediastinum: Mediastinal contours appear normal. Heart size is normal. Bones and chest wall: No suspicious bony lesions. Overlying soft tissues appear unremarkable. IMPRESSION: Improved pulmonary aeration with residual changes of interstitial thickening and hyperinflation, poss ibly emphysema and chronic bronchitis. Reviewed by: Juanita Zamora MD on 10/04/2023 5:26 PM PDT Approved by: Juanita Zamora MD on 10/04/2023 5:26 PM PDT Station ID: [id number]
== END 2023-10-04 13:16 | disposition home or self-care (01) ==
LOC: DI 13:15
PROVIDERS: ATTEND Physician Assistant
DX: J40 Bronchitis, not specified as acute or chronic (principal)